=== PATIENT | male | born 1985 | race Caucasian/White ===

== ENCOUNTER 2021-03-17 20:15 | Emergency (ER) | payer OTHER ==
[~2021-03-17] VITALS: Ht 182.9 cm; Wt 108.9 kg
[~2021-03-17 20:15] MED LIST: CITA20 PO; CODBUTACEC PO
[2021-03-17] MEDS ORDERED: LOSARTAN POTAS100 MG PO (20:51)
[2021-03-17] MEDS ORDERED: ESCI20 PO (20:51)
[2021-03-17] MEDS ORDERED: MICROZIDE12.5 M1 PO (20:51)
== END 2021-03-17 21:16 | disposition home or self-care (01) ==
LOC: ER 20:15
DX: S61.211A Laceration without foreign body of left index finger without damage to nail, initial encounter (principal); Z79.899 Other long term (current) drug therapy; W26.0XXA Contact with knife, initial encounter
CPT/HCPCS: 12001; 99282-25